=== PATIENT | female | born 1995 | race Caucasian/White ===

== ENCOUNTER → 2018-08-06 08:46 | Outpatient (CLI) | payer BC, SELFPAY | PROVIDERS: PCP Internal Medicine; Visit Provider Physician Assistant | DX: J02.9 Acute pharyngitis, unspecified (principal) | CPT/HCPCS: 87070; 87077; 87147 ==

== ENCOUNTER → 2019-01-26 15:43 | Outpatient (CLI) | payer BC, SELFPAY ==
[2019-01-26 17:30] LABS: Luteinizing Hormone 9.89 mIU/mL
== END ==
PROVIDERS: PCP Internal Medicine; Visit Provider Obstetrics & Gynecology
DX: E28.2 Polycystic ovarian syndrome (principal)
CPT/HCPCS: 36415; 83001; 83002

== ENCOUNTER → 2019-01-28 08:07 | Outpatient (CLI) | payer BC, SELFPAY ==
[2019-01-28 09:16] LABS: Glucose 85 mg/dL (70-100)
== END ==
PROVIDERS: Visit Provider Obstetrics & Gynecology
DX: E28.2 Polycystic ovarian syndrome (principal)
CPT/HCPCS: 36415; 82947; 83525

== ENCOUNTER → 2021-12-04 07:01 | Outpatient (CLI) | payer OTHER, SELFPAY ==
[2021-12-04 08:36] LABS: HCG Quantitative /Beta subunit < 2.4 mIU/mL
== END ==
PROVIDERS: Referring Provider Obstetrics & Gynecology; Visit Provider Obstetrics & Gynecology
DX: N91.2 Amenorrhea, unspecified (principal)
CPT/HCPCS: 36415; 84702

== ENCOUNTER → 2022-09-26 15:46 | Outpatient (CLI) | payer OTHER, SELFPAY ==
--- NOTE | 2022-09-26 15:47 | DI.US.S_ITS ---
PROCEDURE: US PELVIC COMPLETE INDICATIONS: pelvic pain and ovarian cysts TECHNIQUE: Real-time scanning was performed of the pelvic organs, with image documentation. Additional endovaginal scanning was necessary due to incomplete visualization of the adnexal and endometrial structures by transabdominal scanning. COMPARISON: [facility], CT, ABDOMEN/PELVIS WITH CONTRAST, 06/22/2008, 15:30. [facility], US, US PELVIC COMPLETE, 10/22/2017, 16:32. [facility], US, US PELVIC COMPLETE, 09/09/2017, 9:43. [facility], US, US PELVIC COMPLETE, 01/26/2019, 15:35. FINDINGS: Uterus: Uterus is anteverted and normal in size at 7.0 x 3.6 x 4.6 cm. The myometrium is homogeneous. The endometrium measures 4 mm combined thickness. Ovaries: The right ovary measures 2.6 x 1.9 x 2.4 cm, with a calculated ovarian volume of 6.2 cc. The left ovary measures 2.0 x 1 IX cm, with a calculated ovarian volume of 2.0 cc. The ovaries have a normal sonographic appearance. Less than 12 follicles can be seen in each ovary. Normal vascularity to ovaries on Doppler ultrasound. No adnexal masses are seen. Other: No pathologic free abdominal or pelvic fluid. IMPRESSION: 1. A cause for pelvic pain is not identified. 2. Less than 12 ovarian follicles are seen in each ovary. Ovaries are otherwise normal. 3. No free fluid in pelvis. We strive to produce accurate, complete, and clear reports of imaging services. To assist us in improving patient care, this report was composed using standard report templates and voice recognition software. Therefore, it may contain abnormal punctuation, insertions and/or omissions. Occasional wrong-word or sound-alike substitutions may occur. Though we review the report and make efforts to correct it, we do recommend that the report be read carefully in proper context to recognize any text inaccuracies. Dictated by: Madie Hull M.D. on 09/26/2022 at 18:23 Approved by: Madie Hull M.D. on 09/27/2022 at 11:06
== END ==
PROVIDERS: Referring Provider Obstetrics & Gynecology; Visit Provider Obstetrics & Gynecology
DX: E28.2 Polycystic ovarian syndrome (principal); R10.2 Pelvic and perineal pain
CPT/HCPCS: 76830; 76856

== ENCOUNTER → 2022-09-27 07:06 | Outpatient (CLI) | payer OTHER, SELFPAY ==
[2022-09-27 09:10] LABS: Glucose 82 mg/dL (70-100)
[2022-09-28 08:41] LABS: Labcorp Hemoglobin (Hb) A1c 5.6 % (4.8-5.6)
== END ==
PROVIDERS: Referring Provider Obstetrics & Gynecology; Visit Provider Obstetrics & Gynecology
DX: E28.2 Polycystic ovarian syndrome (principal)
CPT/HCPCS: 36415; 82947; 83036; 83525

== ENCOUNTER 2023-03-24 07:47 | Day surgery (SDC) | payer OTHER, SELFPAY ==
[2023-03-17 16:13] VITALS: BMI 43.5
--- NOTE | 2023-03-24 | PATH_ITS ---
[facility] Accession Number: [id number] No. of containers..01 Tissue . 01 Material submitted: . cervix - LEEP . 01 Clinical history: . TAGGED AT 12 O'CLOCK . 01 Diagnosis: Uterine Cervix, LEEP Conization: High-grade squamous intraepithelial lesion (JÚNIOR-2 and JÚNIOR-3/moderate and severe squamous dysplasia) extending into the endocervical glands. Negative for glandular dysplasia and invasive carcinoma. Surgical margins: High-grade squamous intraepithelial lesion extends to the endocervical inked and cauterized margin. Remaining margins are not involved. [facility] 03/27/2023 1619 Local . 01 Electronically signed: . Lalitha Adam MD, Pathologist NPI- [id number] . 01 Gross description: . Received in formalin, labeled with the patient's name and LEEP, is an irregular 2.2 x 1.0 x 0.6 cm fragment of pink-mullen trabecular tissue, partially covered by pink-mullen ectocervical mucosa with a suture at one location indicating 12 o'clock. Also received are two fragments of pink-mullen trabecular tissue, 0.6 x 0.5 x 0.2 cm and 0.7 x 0.6 x 0.2 cm. The largest fragment endocervical margin is inked orange and ectocervical resection is inked blue. The smaller fragments are inked black. Based on the configuration of the largest fragment, the two smaller fragments are presumably located between the 12 o'clock and 3-6 o'clock position, but true location cannot be determined. Largest fragment may represent the entire clock face. The largest fragment is radially sectioned (see diagram). The detached fragments are perpendicularly sectioned. The specimen is submitted entirely. ([id number]) /MRV 03/25/2023 1328 Local . 01 Pathologist provided ICD-10: N87.1, D06.9 . 01 CPT . 076723 Specimen Comment: A courtesy copy of this report has been sent to [phone] Performed at: 01 [facility] [address] [place] [address], [place], [place] [id number] MD Ant Newman MD Phone: [phone]
[2023-03-24] MEDS: SCOPOLAMINE 1 PATCH TOP (08:19)
[2023-03-24] MEDS: LACTATED RINGERS 1,000 ML 100 ML IV (08:19)
[2023-03-24 08:22] VITALS: BP 145/99; PULSE 105; RESP 16; TEMP 36.7; O2SAT 98; BMI 43.0
[2023-03-24 08:36] VITALS: BMI 43.0
--- NOTE | 2023-03-24 08:47 | P.HPOB_ITS ---
History of Present Illness History of Present Illness Reason for admission: other (Cervical dysplasia, grade 2-3) Narrative: Rosetta Jimenez is a 28 year old female 0 with severe dysplasia of the cervix, here for a LEEP cone biopsy of the cervix [facility] Medical History (Updated 03/05/23 @ 14:26 by Jerica Jordan MD) Polycystic ovaries Surgical History (Updated 03/24/23 @ 08:42 by Cassi Huggins RN) Hx laparoscopic cholecystectomy Status post appendectomy (06/22/08) Family History (Updated 08/27/14 @ 00:00 by Conversion Provider) Grandfather Age: 84 High cholesterol Grandmother Age: 79 Cancer of kidney Hypertension High cholesterol Stroke Mother Age: 59 High cholesterol Grandfather Diabetes mellitus Cancer Grandmother Age: 89 Cancer Diabetes mellitus Sister Age: 34 High cholesterol Social History household members: spouse Smoking Status: Never smoker alcohol intake: current Meds Home Medications and Allergies Home Medications Medication Instructions Recorded Confirmed Type metformin 500 mg tablet 500 mg PO BID #120 tabs 11/21/22 03/24/23 Rx levonorgestrel 0.15 mg-ethinyl 1 tab PO DAILY #273 ea 02/12/23 03/24/23 Rx estradiol 30 mcg tablets,3 mos pack(91) Allergies Allergy/AdvReac Type Severity Reaction Status Date / Time hydrocodone [HYDROCODONE] Allergy Severe Hives Verified 03/24/23 08:33 adhesive tape Allergy Mild Blister Verified 03/24/23 08:33 Exam Vital Signs (past 8 hours): - 03/24/23 08:22 Temperature 98.1 F Pulse Rate 105 H Respiratory Rate 16 Blood Pressure 145/99 H Pulse Oximetry 98 Oxygen Delivery Method Room Air Oxygen Delivery Method Room Air Narrative Exam Narrative: HEENT: No thyromegaly, no anterior cervical or supraclavicular lymphadenopathy. Lungs:Clear to auscultation bilaterally, no wheezes. Cardiovascular: Regular rate and rhythm, no murmurs, rubs, or gallops. Abdomen: Well-healed laparoscopy scars. No hepatosplenomegaly. No masses palpable. External genitalia: Normal Vagina: Normal Cervix: Normal Bimanual exam: 6 Week size uterus. Mobile. Extremities: No edema Assessment & Plan Assessment & Plan narrative: Assessment: 28-year-old 0 with JÚNIOR 2-3 of the cervix Plan: LEEP cone biopsy of the cervix The risks, benefits, and alternatives to the procedure were explained to the patient. The risks including bleeding, infection, and weakening of the cervix with a future . She understands these risks and agrees to proceed. A full par Q was held and consent form was signed. Time Spent With Patient Time with patient: less than 30 minutes
--- NOTE | 2023-03-24 08:51 | SUR.OPER ---
Lithotomy on padded OR bed, head on pillow, arms secured on padded arm boards at <90 degrees abduction. Legs secured in padded yellow fins stirrups.
[2023-03-24] MEDS: ACETAMINOPHEN IV 1,000 MG/100 ML VIAL 400 MG IV (09:05)
[2023-03-24 09:38] VITALS: BP 136/86; PULSE 96; RESP 20; TEMP 37.3; O2SAT 99
[2023-03-24 09:42] VITALS: BP 148/90; PULSE 80; RESP 16; O2SAT 97
--- NOTE | 2023-03-24 09:42 | P.OP_ITS ---
Operative Date/Time/Diagnoses Date of procedure: 03/24/23 Time of procedure: 09:42 Pre-op diagnosis: JÚNIOR 2-3 of the cervix Post-op diagnosis: same Procedure & Clinicians Procedure: Procedures Operation Date: 03/24/23 09:00 Actual Procedure Side Surgeon p LEEP Procedure Annette Blanco MD Indications: Patient is a 28-year-old 0 with JÚNIOR 2-3 of the cervix Surgeon: Annette Blanco Anesthesia Type: General (LMA) and Epidural Operative Notes Findings: Lugol's light at the 3 and 6 o'clock position Closure Type: not applicable Specimen(s): other (LEEP cone biopsy of the cervix, suture at 12:00 p.m.) Estimated blood loss (mL): 5 Procedure in detail: After informed consent was obtained, the patient was taken to the operating room where she was placed in the dorsal supine position. After adequate LMA general anesthesia was achieved, she was placed in the dorsal lithotomy position, and prepped and draped in the usual sterile fashion. A plastic coated bivalve speculum was placed into the vagina. A plastic coated single-tooth tenaculum was placed on the anterior lip of the cervix. The cervix was coated x3 with Lugol solution. There was a Lugol's light area at the 3 and 6 o'clock positions. Three sources of suction were used. The first was attached to the plastic coated bivalve speculum. The second was attached to the Bovie, and the third was a suction held by the surgical scrub technician. Using the large loop, and settings at 60 cut and 40 cautery, a LEEP cone biopsy of the cervix was performed. The biopsy was tagged at the 12 o'clock position with a suture. The ball cautery was used to cauterize the base of the cone. Hemostasis was achieved. The plastic coated single-tooth tenaculum was removed from the anterior lip of the cervix. A plastic coated bivalve speculum was removed from the vagina. Sponge, lap, and instrument counts were correct x2. The patient tolerated the procedure well, and was taken to PACU in stable condition. Complications: none Post-operative Condition: stable Disposition: PACU Plan for aftercare: Home after recovery
[2023-03-24 09:48] VITALS: BP 144/91; PULSE 81; RESP 16; O2SAT 97
[2023-03-24 09:57] VITALS: BP 143/87; PULSE 78; RESP 16; TEMP 37.1; O2SAT 97
== END 2023-03-24 10:13 | disposition home or self-care (01) ==
PROVIDERS: PCP Family Medicine; Referring Provider Obstetrics & Gynecology; Visit Provider Obstetrics & Gynecology
PROC: 0UBC7ZZ Excision of Cervix, Via Natural or Artificial Opening (ICD-10-PCS; CPT 57522; principal; 2023-03-24 09:00)
DX: D06.1 Carcinoma in situ of exocervix (principal)
CPT/HCPCS: 57522; 81025; J0131; J1100; J1885; J2405; J2704; J3010

== ENCOUNTER → 2023-07-17 07:00 | Outpatient (CLI) | payer OTHER, SELFPAY ==
[2023-07-17 08:03] LABS: Add Manual Diff / Slide Review NO; Basophils Absolute Auto 0 /uL (0-100); Basophils Percent Auto 0.3 % (0-2); Eosinophils Absolute Auto 200 /uL (0-450); Eosinophils Percent Auto 2.2 % (2-4); Hematocrit 39.9 % (36-46); Hemoglobin 13.5 g/dL (12.0-16.0); Lymphocytes Absolute Auto 3800 /uL (1100-4500); Lymphocytes Percent Auto 39.5 % (25-40); Mean Corpuscular HGB Conc 33.8 % (30-36); Mean Corpuscular Volume 85.7 fL (80-100); Monocytes Absolute Auto 400 /uL (0-900); Monocytes Percent Auto 4.6 % (3-14); Neutrophils Absolute Auto 5100 /uL (1500-7000); Neutrophils Percent Auto 53.4 % (50-75); Platelet Count 305 X10^3/uL (150-400); Red Blood Cell Count 4.65 X10^6/uL (4.0-5.2); Red Cell Distribution Width 12.8 % (11.6-14.8); White Blood Cell Count 9.5 X10^3/uL (4.5-11.0)
[2023-07-17 08:58] LABS: Vitamin D 25 Hydroxy (D3) 42.7 ng/mL (30.0-100.0)
[2023-07-17 09:01] LABS: Ferritin 29 ng/mL (6-137)
== END ==
PROVIDERS: PCP Family Medicine; Referring Provider Obstetrics & Gynecology; Visit Provider Obstetrics & Gynecology
DX: R53.83 Other fatigue (principal)
CPT/HCPCS: 36415; 82306; 82728; 85025

== ENCOUNTER → 2023-08-16 08:27 | Outpatient (CLI) | payer OTHER, SELFPAY ==
[2023-08-16 09:54] LABS: Alanine Aminotransferase 35 IU/L (<35); Albumin 4.4 g/dL (3.5-5.0); Albumin Globulin Ratio 1.4 (1.0-2.8); Alkaline Phosphatase 48 U/L (38-126); Aspartate Aminotransferase 29 IU/L (14-36); BUN Creatinine Ratio 17.2 (6-22); Bilirubin Total 0.5 mg/dL (0.2-1.3); Blood Urea Nitrogen 11 mg/dL (7-17); Calcium 9.7 mg/dL (8.4-10.2); Carbon Dioxide 22 mmol/L (22-32); Chloride 108 mmol/L (98-107); Cholesterol 222 mg/dL (140-199); Estimated Glomerular Filt Rate > 60 mL/min (>60); Globulin 3.2 g/dL (1.7-4.1); Glucose 85 mg/dL (70-100); HDL Cholesterol 42 mg/dL (40-60); HEMOLYSIS < 15 (0-50); LDL Cholesterol Calculated 134 mg/dL (<100); Potassium 4.6 mmol/L (3.4-5.1); Sodium 141 mmol/L (137-145); Total Protein 7.6 g/dL (6.3-8.2); Triglycerides 230 mg/dL (35-150)
[2023-08-16 10:10] LABS: Free T3, Triiodothyronine Free 4.07 pg/mL (2.77-5.27); Free T4, Direct Thyroxine 0.94 ng/dL (0.78-2.19)
[2023-08-16 10:24] LABS: Thyroid Stimulating Hormone 1.61 uIU/mL (0.47-4.68)
[2023-08-18 22:33] LABS: Thyroid Peroxidase Antibodies <9 IU/mL (0-34)
== END ==
PROVIDERS: PCP Family Medicine; Referring Provider Naturopath; Visit Provider Naturopath
DX: Z00.00 Encounter for general adult medical examination without abnormal findings (principal); E28.2 Polycystic ovarian syndrome; R53.83 Other fatigue
CPT/HCPCS: 36415; 80053; 80061; 84439; 84443; 84481; 86376

== ENCOUNTER 2024-01-12 08:02 | Day surgery (SDC) | payer OTHER, SELFPAY ==
[2024-01-06 15:17] VITALS: BMI 42.2
[2024-01-12] VITALS (7 sets, daily range): BP systolic 115–140; BP diastolic 79–93; PULSE 67–92; RESP 12–17; TEMP 36.2–36.6; O2SAT 96–99; BMI 42.2
--- NOTE | 2024-01-12 | PATH_ITS ---
[facility] Accession Number: [id number] No. of containers..01 Tissue . 01 Material submitted: . vagina - CONTENTS OF VAGINAL CYST . 01 Diagnosis: A. VAGINAL CYST CONTENTS, REMOVAL: Scant specimen consisting predominantly of proteinaceous material, mild mixed inflammatory infiltrate, and a rare collection of benign glandular cells. MRV 01/14/2024 1321 Local . 01 Electronically signed: . Dolly Garcia MD, Pathologist NPI- [id number] . 01 Gross description: . Received in formalin with two patient identifiers and contents of vaginal cyst, is an irregular yellow to mullen cloudy friable gelatinous fragment of tissue measuring 5.1 x 3.6 x 1.8 cm. Salvage Machine Operator sections are submitted in A1-A2. Note: Due to the gelatinous nature of the material, it may not survive processing. (AG:[id number]) /MRV 01/13/2024 1810 Local . 01 Pathologist provided ICD-10: N89.8 . 01 CPT . 512344 Specimen Comment: A courtesy copy of this report has been sent to [phone] Performed at: [address] [id number] MD Ant Newman MD Phone: [phone]
[2024-01-12] MEDS: LACTATED RINGERS 1,000 ML 42 ML IV (08:33)
[2024-01-12] MEDS: SCOPOLAMINE 1 PATCH TOP (08:33)
[2024-01-12] MEDS: ACETAMINOPHEN 325 MG TABLET 975 MG PO (08:33)
--- NOTE | 2024-01-12 09:03 | SUR.OPER ---
Lithotomy on padded OR bed, head on pillow, arms secured on padded arm boards at <90 degrees abduction. Legs secured in padded yellow fins stirrups.
--- NOTE | 2024-01-12 09:07 | P.HPOB_ITS ---
History of Present Illness History of Present Illness Reason for admission: other (Vaginal cyst) Narrative: Rosetta Jimenez is a 28 year old female G0 who presents for an excision a vaginal cyst and Pap smear. Patient was seen in the office and we were unable to do a Pap due to the vaginal cyst obscuring the cervix. [facility] Medical History (Updated 01/06/24 @ 15:19 by Nay Killian RN) Anesthesia complication Polycystic ovaries Surgical History (Updated 01/06/24 @ 15:18 by Nay Killian RN) Status post LEEP (loop electrosurgical excision procedure) of cervix (03/24/23) Hx laparoscopic cholecystectomy Status post appendectomy (06/22/08) Family History (Updated 08/27/14 @ 00:00 by Conversion Provider) Grandfather Age: 85 High cholesterol Grandmother Age: 80 Cancer of kidney Hypertension High cholesterol Stroke Mother Age: 60 High cholesterol Grandfather Diabetes mellitus Cancer Grandmother Age: 90 Cancer Diabetes mellitus Sister Age: 35 High cholesterol Social History household members: spouse Smoking Status: Never smoker alcohol intake: current Meds Home Medications and Allergies Home Medications Medication Instructions Recorded Confirmed Type metformin 500 mg tablet 1,000 mg (2 x 500 mg) PO BID #120 06/18/23 01/12/24 Rx tabs cholecalciferol (vitamin D3) 50 100 mcg PO DAILY 01/12/24 01/12/24 History mcg (2,000 unit) tablet (Vitamin D3) ferrous sulfate 325 mg (65 mg 325 mg PO DAILY 01/12/24 01/12/24 History iron) tablet (iron) inositol 500 mg tablet 500 mg PO DAILY 01/12/24 01/12/24 History levonorgestrel-ethinyl estradiol 1 tab PO DAILY 01/12/24 01/12/24 History 0.1 mg-20 mcg tablet (Falmina (28)) Allergies Allergy/AdvReac Type Severity Reaction Status Date / Time hydrocodone [HYDROCODONE] Allergy Severe Hives Verified 01/12/24 08:20 adhesive tape Allergy Mild Blister Verified 01/12/24 08:20 Exam Vital Signs (past 8 hours): - 01/12/24 08:40 Temperature 97.3 F L Pulse Rate 92 H Respiratory Rate 17 Blood Pressure 140/93 H Pulse Oximetry 97 Oxygen Delivery Method Room Air Oxygen Delivery Method Room Air Narrative Exam Narrative: HEENT: No thyromegaly, no anterior cervical or supraclavicular lymphadenopathy. Lungs:Clear to auscultation bilaterally, no wheezes. Cardiovascular: Regular rate and rhythm, no murmurs, rubs, or gallops. Abdomen: Well-healed scars. No hepatosplenomegaly. No masses palpable. External genitalia: Normal Vagina: Normal Cervix: Normal Bimanual exam: 6 Week size anteverted uterus. Mobile. No adnexal masses or tenderness. Extremities: No edema Assessment & Plan Assessment & Plan narrative: Assessment: 28-year-old G0 with a large left vaginal wall cyst Due for Pap smear status post LEEP Unable to visualize the cervix in the office due to the vaginal cyst Plan: Excision of the left vaginal wall cyst Pap with ECC The risks, benefits, and alternatives to the procedure were explained to the patient. The risks including bleeding and infection. She understands these risks and agrees to proceed. A full par Q was held and consent form was signed. Time-Based Coding :: [TOTAL MINUTES] spent with patient and on the chart (including review of chart, obtaining history, exam, reviewing outside data, placing orders, documenting exam and treatment plan, and counseling patient) on [DATE].
--- NOTE | 2024-01-12 09:09 | PM.PREOP ---
Pre-operative Note Interval Note History & Physical reviewed/Exam performed by Physician: Yes Changes to H&P: No H&P completed within 30 days and has changed as indicated here:: 01/12/24
--- NOTE | 2024-01-12 10:03 | PM.GYNOP.1 ---
Operative Date/Time/Diagnoses Date of procedure: 01/12/24 Time of procedure: 10:03 Pre-op diagnosis: Left vaginal wall cyst Previous LEEP, unable to see the cervix in the office due to the cyst Post-op diagnosis: same Procedure & Clinicians Procedure: Procedures Operation Date: 01/12/24 09:45 Actual Procedure Side Surgeon p Excision of Vaginal Cyst, PAP with endocervical curettage Annette Blanco MD Indications: 28-year-old 0 with a large left vaginal wall cyst. Patient had a LEEP cone biopsy of the cervix last year and is due for a Pap. I was unable to visualize the cervix in the office due to the left vaginal wall cyst. Surgeon: Annette Blanco Anesthesia Type: General (LMA) and Local Operative Notes Findings: 5 cm x 2 cm left vaginal wall cyst. This cyst was arising from the lateral vaginal wall just in front of the cervix Large amount of fatty/mucoid material in the cyst Closure Type: primary Specimen(s): other (Contents of vaginal wall cyst, Pap, ECC) Estimated blood loss (mL): 3 Blood products transfused: none Procedure in detail: After informed consent was obtained, the patient was taken to the operating room where she was placed in the dorsal supine position. After adequate LMA general anesthesia was achieved, she was placed in the dorsal lithotomy position, and prepped and draped in the usual sterile fashion. A time-out was performed. A bivalve speculum was placed into the vagina. The bulge in the mucosa was grasped with 2 Allis clamps. A 1.5 cm incision was made between the 2 Allis clamps. There was extrusion of a large amount of a yellow mucoid/fatty material. The cyst wall was removed. The mucosa was closed with 2-0 Vicryl in a running suture. Hemostasis was achieved. The cervix was irrigated with saline. A thin prep Pap of the cervix was obtained. An ECC was obtained. The speculum was removed from the vagina. Sponge, lap, and instrument counts were correct x2. The patient tolerated the procedure well, and was taken to PACU in stable condition. Complications: none Post-operative Condition: stable Disposition: PACU Plan for aftercare: Home after recovery
[2024-01-12] MEDS: BUPIVACAINE 0.5% W/ EPI (PF) 10 ML VIAL 5 ML INJ (10:04)
== END 2024-01-12 11:04 | disposition home or self-care (01) ==
PROVIDERS: PCP Family Medicine; Referring Provider Obstetrics & Gynecology; Visit Provider Obstetrics & Gynecology
PROC: (CPT 57135; principal; 2024-01-12 09:45)
DX: N89.8 Other specified noninflammatory disorders of vagina (principal); Z98.890 Other specified postprocedural states
CPT/HCPCS: 57135; 57505; 81025; J1100; J2405; J2704; J3010

== ENCOUNTER → 2024-02-12 12:13 | Outpatient (CLI) | payer OTHER, SELFPAY ==
[2024-02-13 12:36] LABS: Candida species Negative (Negative); Gardnerella vaginalis Negative (Negative); Trichomoas vaginalis Negative (Negative)
== END ==
PROVIDERS: PCP Family Medicine; Visit Provider Obstetrics & Gynecology
DX: N89.8 Other specified noninflammatory disorders of vagina (principal)
CPT/HCPCS: 87480; 87510; 87660

== ENCOUNTER → 2024-10-25 14:46 | Outpatient (CLI) | payer OTHER, SELFPAY ==
[2024-10-25 15:59] LABS: HCG Quantitative /Beta subunit 1962.8 mIU/mL
== END ==
PROVIDERS: PCP Family Medicine; Referring Provider Family Medicine; Visit Provider Obstetrics & Gynecology
DX: N91.2 Amenorrhea, unspecified (principal)
CPT/HCPCS: 36415; 84702

== ENCOUNTER → 2024-11-10 15:10 | Outpatient (CLI) | payer OTHER, SELFPAY ==
[2024-11-10 20:45] LABS: Urine N gonorrhoeae NOT DETECTED
[2024-11-10 21:40] LABS: Urine Chlamydia NOT DETECTED
== END ==
PROVIDERS: PCP Family Medicine; Visit Provider Obstetrics & Gynecology
DX: Z11.3 Encounter for screening for infections with a predominantly sexual mode of transmission (principal); Z3A.08 8 weeks gestation of pregnancy
CPT/HCPCS: 87491; 87591

== ENCOUNTER → 2024-11-30 14:41 | Outpatient (CLI) | payer OTHER, SELFPAY ==
[2024-11-30 16:19] LABS: Natera Collection Specimen Collected
[2024-11-30 16:38] LABS: Add Manual Diff / Slide Review NO; Basophils Absolute Auto 0 /uL (0-100); Basophils Percent Auto 0.1 % (0-2); Eosinophils Absolute Auto 100 /uL (0-450); Eosinophils Percent Auto 1.2 % (2-4); Hematocrit 39.5 % (36-46); Hemoglobin 13.4 g/dL (12.0-16.0); Lymphocytes Absolute Auto 2900 /uL (1100-4500); Lymphocytes Percent Auto 33.2 % (25-40); Mean Corpuscular Hemoglobin 29.7 PG (26-34); Mean Corpuscular Volume 87.2 fL (80-100); Monocytes Absolute Auto 500 /uL (0-900); Monocytes Percent Auto 5.6 % (3-14); Neutrophils Absolute Auto 5300 /uL (1500-7000); Neutrophils Percent Auto 59.9 % (50-75); Platelet Count 316 X10^3/uL (150-400); Red Blood Cell Count 4.53 X10^6/uL (4.0-5.2); Red Cell Distribution Width 12.4 % (11.6-14.8); White Blood Cell Count 8.8 X10^3/uL (4.5-11.0)
[2024-11-30 18:25] LABS: Hepatitis B Surface Antigen NEGATIVE s/c (NEGATIVE); Rubella Antibody IgG 61.7 IU/mL (>15)
[2024-11-30 18:39] LABS: HIV 1 & 2 Ab/Ag 4th Gen Combo NEGATIVE (NEGATIVE); Hep C Virus Ab w/Reflex Quant NEGATIVE s/c (NEGATIVE)
== END ==
LOC: LAB 14:43
PROVIDERS: PCP Family Medicine; Referring Provider Obstetrics & Gynecology; Visit Provider Obstetrics & Gynecology
DX: O99.210 Obesity complicating pregnancy, unspecified trimester (principal); E28.2 Polycystic ovarian syndrome; Z36.0 Encounter for antenatal screening for chromosomal anomalies
CPT/HCPCS: 36415; 80055; 83036; 86787; 86803; 86850; 86900; 86901; 87086; 87389

== ENCOUNTER 2025-01-04 08:13 | Day surgery (SDC) | payer OTHER, SELFPAY ==
[2024-12-30 08:40] VITALS: BMI 44.6
[2025-01-04 08:41] VITALS: BP 144/94; PULSE 93; RESP 16; TEMP 36.3; O2SAT 97; BMI 44.8
--- NOTE | 2025-01-04 08:41 | PM.GYNHP.1 ---
History of Present Illness History of Present Illness Narrative: Rosetta Jimenez is a 29 year old female 1 para 0 at 15 weeks gestation who presents for a Hernández cervical cerclage. Patient is status post a large/extensive LEEP cone biopsy of the cervix. [facility] Medical History (Updated 12/21/24 @ 10:39 by Annette Blanco MD) High cholesterol High blood pressure Mullerian duct cyst of vagina Anesthesia complication Surgical History Status post LEEP (loop electrosurgical excision procedure) of cervix (03/24/23) Hx laparoscopic cholecystectomy Status post appendectomy (06/22/08) Family History (Updated 10/28/24 @ 08:07 by Carey Martinez RN) Grandfather High cholesterol Heart disease S/P CABG x 3 Grandmother Age: 81 Cancer of kidney Hypertension High cholesterol Stroke Diabetes mellitus Mother Age: 61 High cholesterol Grandfather Diabetes mellitus Colon cancer Grandmother Age: 91 Diabetes mellitus Myeloma Sister Age: 36 High cholesterol Social History marital status: number of children: 0 household members: spouse lives independently: Yes caregiver/support person: No housing: house pets and animals: No education level: vocational occupational status: employed (insurance sales) current occupational exposures/hazards: No special manuel needs: No travel history: recent (domestic only) seatbelt use: always water heater temp set < 120 deg: Yes working smoke detector in home: Yes fire extinguisher in home: Yes carbon monox detector in home: Yes firearms in home: No do you feel safe at home: Yes second hand exposure: No alcohol intake: former substance use type: does not use during the past year weight has: remained stable well-balanced diet: rarely or never daily servings fruits/ve-1 (1-2) caffeine: Yes (aware of 200mg ) Type(s) of exercise: walking Meds Home Medications and Allergies Home Medications ?Medication ?Instructions ?Recorded ?Confirmed ?Type metformin 500 mg tablet,extended 500 mg PO BID #60 tabs 05/26/24 12/21/24 Rx release 24 hr vitamin-ferrous sulfate tab PO 10/28/24 12/21/24 History 27 mg iron-folic acid 0.8 mg tablet Allergies Allergy/AdvReac Type Severity Reaction Status Date / Time hydrocodone (HYDROCODONE) Allergy Severe Hives Verified 01/04/25 08:52 adhesive tape Allergy Mild Blister Verified 01/04/25 08:52 Exam Narrative Exam Narrative: HEENT: No thyromegaly, no anterior cervical or supraclavicular lymphadenopathy. Lungs:Clear to auscultation bilaterally, no wheezes. Cardiovascular: Regular rate and rhythm, no murmurs, rubs, or gallops. Abdomen: [Well-healed scars. No hepatosplenomegaly. No masses palpable Bimanual exam: 15 Week size uterus. Mobile. Extremities: No edema Assessment & Plan Assessment & Plan narrative: Assessment: 29-year-old 1 para 0 at 15 weeks gestation Status post large/extensively cone biopsy of the cervix Plan: Hernández cervical cerclage The risks, benefits, and alternatives to the procedure were explained to the patient. The risks including bleeding, infection, and rupture of membranes. She understands all of these risks and agrees to proceed. A full par Q was held and consent form was signed. Time-Based Coding :: [TOTAL MINUTES] spent with patient and on the chart (including review of chart, obtaining history, exam, reviewing outside data, placing orders, documenting exam and treatment plan, and counseling patient) on [DATE].
--- NOTE | 2025-01-04 08:43 | PM.PREOP ---
Pre-operative Note Interval Note History & Physical reviewed/Exam performed by Physician: Yes Changes to H&P: No H&P completed within 30 days and has changed as indicated here:: 01/04/25
[2025-01-04] MEDS: LACTATED RINGERS 1,000 ML 21 ML IV (09:00)
[2025-01-04] MEDS: ACETAMINOPHEN IV 1,000 MG/100 ML VIAL 400 MG IV (09:07)
[2025-01-04] MEDS: CEFAZOLIN 2 GM/100 ML PREMIX 100 ML IV (10:10)
--- NOTE | 2025-01-04 10:15 | SUR.OPER ---
Lithotomy on padded OR bed, head on pillow, arms secured on padded arm boards at <90 degrees abduction. Legs secured in padded yellow fins stirrups.
[2025-01-04] MEDS: INDOMETHACIN 25 MG CAPSULE 50 MG PO (10:36)
[2025-01-04 10:47] VITALS: BP 145/75; PULSE 97; RESP 12; TEMP 36.3; O2SAT 96
[2025-01-04 10:52] VITALS: BP 134/72; PULSE 95; RESP 18; O2SAT 95
--- NOTE | 2025-01-04 10:55 | PM.GYNOP.1 ---
Operative Date/Time/Diagnoses Date of procedure: 01/04/25 Time of procedure: 10:55 Pre-op diagnosis: Status post large/extensive LEEP cone biopsy of the cervix Post-op diagnosis: same Procedure & Clinicians Procedure: Procedures Operation Date: 01/04/25 09:45 Actual Procedure Side Surgeon salome Blanco MD Indications: 29-year-old 1 para 0 at 15 weeks gestation with a history of a large/extensive LEEP cone biopsy of the cervix Surgeon: Annette Blanco Operative Notes Findings: Cervix 4 cm in length Knot at 11 o'clock Closure Type: not applicable Specimen(s): none Applied: catheter (In/out to drain the bladder) Estimated blood loss (mL): 10 Blood products transfused: none Procedure in detail: After informed consent was obtained, the patient was taken to the operating room where she was placed in the dorsal supine position. After adequate general endotracheal anesthesia was achieved, she was placed in the dorsal lithotomy position, and prepped and draped in the usual sterile fashion. A time-out was performed. A weighted speculum was placed into the vagina and the anterior and posterior lips of the cervix were grasped with ring forceps. Using a 5 mm Mersilene on a taper needle a pursestring suture was performed starting at 11-9, 8 - 7, 5 - 3, and 2-11 o'clock. 5 knots were tied at 11 o'clock. A digital exam was performed and 1 finger could not be admitted. 50 mg of indomethacin were placed rectally. Sponge, lap, and instrument counts were correct x2. The patient tolerated the procedure well, and was taken to PACU in stable condition. heart tones to be obtained in recovery. Post-operative Condition: stable Disposition: PACU Plan for aftercare: Home after recovery
[2025-01-04 10:57] VITALS: BP 118/71; PULSE 94; RESP 19; O2SAT 94
[2025-01-04] MEDS: BENZOCAINE/MENTHOL 1 LOZ PKT 1 EACH PO (10:57)
[2025-01-04 11:02] VITALS: BP 119/65; PULSE 93; RESP 20; O2SAT 95
[2025-01-04 11:29] VITALS: BP 124/73; PULSE 89; RESP 17; TEMP 36.5; O2SAT 96
--- NOTE | 2025-01-04 11:38 | PC.NURSE ---
1130- This OB RN assessed FHTs, auscultated x90 seconds, HR 145, normal rhythm
--- NOTE | 2025-01-04 11:54 | SUR.PHASEII ---
center RN came and did heart tones. RN stated she would chart heart tones.
== END 2025-01-04 11:55 | disposition home or self-care (01) ==
PROVIDERS: PCP Family Medicine; Referring Provider Obstetrics & Gynecology; Visit Provider Obstetrics & Gynecology
PROC: 0UVC7ZZ Restriction of Cervix, Via Natural or Artificial Opening (ICD-10-PCS; CPT 57700; principal; 2025-01-04 09:45)
DX: O34.42 Maternal care for other abnormalities of cervix, second trimester (principal); Z3A.15 15 weeks gestation of pregnancy
CPT/HCPCS: 59320; J0131; J0330; J0690; J1100; J1885; J2405; J2704; J2765; J3010

== ENCOUNTER → 2025-01-19 10:36 | Outpatient (CLI) | payer OTHER, SELFPAY | PROVIDERS: PCP Family Medicine; Referring Provider Obstetrics & Gynecology; Visit Provider Obstetrics & Gynecology | DX: Z36.0 Encounter for antenatal screening for chromosomal anomalies (principal) | CPT/HCPCS: 36415; 82105 ==

== ENCOUNTER → 2025-03-04 15:04 | Outpatient (CLI) | payer OTHER, SELFPAY ==
--- NOTE | 2025-03-04 15:05 | DI.US.S_ITS ---
PROCEDURE: US OB FOLLOW UP INDICATIONS: f/u cardiac and facial views OUTSIDE/PRIOR DATING DATA: Last menstrual period (LMP): 09/12/2024 LMP-based estimated date of delivery (CHELA): 06/19/2025 First dating scan (date and location): [id number]. Estimated date of delivery (CHELA) from first dating scan: 06/27/2025 The calculations are made using the working CHELA of 06/27/2025. TECHNIQUE: Real-time scanning was performed of the fetus, with image documentation. Endovaginal scanning: Not performed COMPARISON: 02/08/2025. FINDINGS: A single living intrauterine gestation is present. Presentation: Vertex Placenta: Placental position is anterior without previa. Amniotic fluid index: 17.3 cm, normal range is 5-24 cm. Single deepest vertical pocket is 5.1 cm. heart rate: 144 beats per minute. Maternal cervical canal: Closed and measures 3.3 cm long. Normal lower limit is 2.5 cm. Estimated gestational age from initial scan: 23 weeks, 4 days. facial profile, four-chamber heart and ventricular outflow tracts are visualized and are within normal limits. IMPRESSION: 1. Single live intrauterine gestation with fetus in vertex presentation. heart rate is 144 beats per minute. Normal LUCY at 17.3 cm. 2. facial profile, four-chamber heart and ventricular outflow tracts are visualized and are within normal limits. Dictated by: Juan Estrella M.D. on 03/05/2025 at 1:34 Approved by: Juan Estrella M.D. on 03/05/2025 at 1:36
== END ==
PROVIDERS: PCP Family Medicine; Referring Provider Obstetrics & Gynecology; Visit Provider Obstetrics & Gynecology
DX: O09.92 Supervision of high risk pregnancy, unspecified, second trimester (principal); O99.212 Obesity complicating pregnancy, second trimester; Z3A.23 23 weeks gestation of pregnancy
CPT/HCPCS: 76816

== ENCOUNTER → 2025-03-25 07:10 | Outpatient (CLI) | payer OTHER, SELFPAY ==
[2025-03-25 08:59] LABS: Hematocrit 34.3 % (36-46); Hemoglobin 11.7 g/dL (12.0-16.0)
[2025-03-25 09:24] LABS: GTT (PREG) 1 Hour PP 50gm Dose 143 mg/dL (76-139)
== END ==
PROVIDERS: PCP Family Medicine; Referring Provider Obstetrics & Gynecology; Visit Provider Obstetrics & Gynecology
DX: Z13.0 Encounter for screening for diseases of the blood and blood-forming organs and certain disorders involving the immune mechanism (principal); Z13.1 Encounter for screening for diabetes mellitus
CPT/HCPCS: 36415; 82950; 85014; 85018

== ENCOUNTER 2025-03-27 11:18 | Outpatient (CLI) | payer OTHER, SELFPAY | END 2025-03-27 12:02 | disposition home or self-care (01) | LOC: LABOR 12:01 → OB 03-28 06:48 | PROVIDERS: PCP Family Medicine; Referring Provider Internal Medicine; Visit Provider Student in an Organized Health Care Education/Training Program | DX: O36.8120 Decreased fetal movements, second trimester, not applicable or unspecified (principal); O26.892 Other specified pregnancy related conditions, second trimester; M25.512 Pain in left shoulder; Z3A.26 26 weeks gestation of pregnancy | CPT/HCPCS: 59025; 93010; G0378; G0379 ==

== ENCOUNTER 2025-03-27 11:54 | Emergency (ER) | payer OTHER, SELFPAY ==
[2025-03-27] VITALS (10 sets, daily range): BP systolic 118–134; BP diastolic 62–85; PULSE 99–120; RESP 17–27; TEMP 36.5; O2SAT 95–98; BMI 45.7
--- NOTE | 2025-03-27 12:34 | DI.RAD.S_ITS ---
PROCEDURE: XR CHEST 1V INDICATIONS: Chest Pain TECHNIQUE: One view of the chest was acquired. COMPARISON: None. FINDINGS: Surgical changes and devices: None. Lungs and pleura: Lungs are clear. No pleural effusions or pneumothorax. Mediastinum: Mediastinal contours appear normal. Heart size is normal. Bones and chest wall: No suspicious bony lesions. Overlying soft tissues appear unremarkable. IMPRESSION: No acute cardiopulmonary abnormality is seen. Approved by: Chele Cortes M.D. on 03/27/2025 at 12:38
[2025-03-27 12:58] LABS: Add Manual Diff / Slide Review NO; Hematocrit 36.1 % (36-46); Hemoglobin 12.4 g/dL (12.0-16.0); Lymphocytes Absolute Auto 2000 /uL (1100-4500); Mean Corpuscular HGB Conc 34.3 % (30-36); Mean Corpuscular Hemoglobin 29.3 PG (26-34); Mean Corpuscular Volume 85.5 fL (80-100); Platelet Count 279 X10^3/uL (150-400)
--- NOTE | 2025-03-27 12:59 | EKG_ITS ---
[address] [address] Test Date: 2025-03-27 Pat Name: Rosetta Jimenez Department: [facility] Room: Gender: Female Audio Video Repairer: FRANCISCO : 1995 Requested By: Order Number: [id number] Reading MD: Jer Newby MD Measurements Intervals [place] Rate: 89 P: 15 NC: 138 QRS: 19 QRSD: 84 T: -1 QT: 366 QTc: 445 Interpretive Statements Normal sinus rhythm Electronically Signed On 03-27-2025 21:52:20 PDT by Jer Newby MD
[2025-03-27 13:02] LABS: INR 1.2 (0.9-1.3); Prothrombin Time 13.5 SECONDS (9.4-12.5)
[2025-03-27 13:04] LABS: PTT Partial Thromboplastin Tim 31 SECONDS (25.1-36.5)
[2025-03-27 13:06] LABS: Alanine Aminotransferase 11 IU/L (<35); Albumin 4.1 g/dL (3.5-5.0); Albumin Globulin Ratio 1.3 (1.0-2.8); Alkaline Phosphatase 72 U/L (38-126); Blood Urea Nitrogen 4 mg/dL (7-17); Calcium 9.3 mg/dL (8.4-10.2); Carbon Dioxide 18 mmol/L (22-32); Chloride 106 mmol/L (98-107); Creatine Kinase 43 U/L (30-135); Estimated Glomerular Filt Rate > 60 mL/min (>60); Globulin 3.2 g/dL (1.7-4.1); Glucose 81 mg/dL (70-99); HEMOLYSIS < 15 (0-50); Lipase 46 U/L (23-300); Magnesium 1.5 mg/dL (1.6-2.3); Potassium 4.0 mmol/L (3.4-5.1); Sodium 136 mmol/L (137-145); Total Protein 7.3 g/dL (6.3-8.2)
[2025-03-27 13:18] LABS: NT-proBNP (BNP-Adult 18+) < 20 pg/mL (<125); Troponin I < 0.012 ng/mL (0.01-0.034)
--- NOTE | 2025-03-27 15:21 | PC.NURSE ---
pt states pain in the L rib area that radiates into her R shoulder.
--- NOTE | 2025-03-27 15:52 | ED_ITS ---
HPI - Extremity Problem General Chief complaint: Extremity Problem,Nontraumatic Stated complaint: lt side rib pain moved up to shoulder t-3 [id number] Time Seen by Provider: 03/27/25 14:29 Source: patient, RN notes reviewed and old records reviewed Mode of arrival: Ambulatory Limitations: no limitations History of Present Illness HPI Narrative: 30-year-old female proximally [address] Payne. Patient notes started having chest discomfort which she describes as pain in the left lower chest starting 2 days ago has since moved up towards her left shoulder. She states at 1 point of move to her back but has mostly been anterior. She denies fevers or chills. She states nothing seems to make it better or worse she has not noticed any change with the exertion, no changes with movement, she has tried ice, heat and acetaminophen without improvement. New rash or skin changes. She notes some shortness of breath and describes some pleuritic chest discomfort. She denies any nausea or vomiting. No syncope. No new swelling or edema in her extremities. No warmth, erythema or cramping. No issues with bowel movements. Patient has not had any prior pregnancies, she is following with Dr. Payne. She is not any daily medications. She has had prior appendectomy, cholecystectomy, LEEP and cerclage. No tobacco, no alcohol, no recreational drugs. She denies any prior cardiac, pulmonary or vascular history and denies any for her family as well. Related Data Home Medications ?Medication ?Instructions ?Recorded ?Confirmed vitamin-ferrous sulfate See Rx Instructions P O .COMPLEX 10/28/24 03/16/25 27 mg iron-folic acid 0.8 mg tablet Previous Rx's ?Medication ?Instructions ?Recorded metformin 500 mg tablet,extended 500 mg PO BID #60 tab s 05/26/24 release 24 hr indomethacin 25 mg capsule 25 mg PO QID #4 caps sertraline 50 mg tablet (Zoloft) 50 mg PO DAILY #30 ta bs 02/16/25 Allergies Allergy/AdvReac Type Severity Reaction Status Date / Time hydrocodone (HYDROCODONE) AdvReac Severe Hives Verified 03/27/25 12:19 adhesive tape AdvReac Mild Blister Verified 03/27/25 12:19 Review of Systems Review of Systems ROS Unobtainable: All systems reviewed & are unremarkable except as noted in HPI and below Patient History Medical History High cholesterol High blood pressure Mullerian duct cyst of vagina Anesthesia complication Surgical History Status post LEEP (loop electrosurgical excision procedure) of cervix (03/24/23) Hx laparoscopic cholecystectomy Status post appendectomy (06/22/08) Family History Grandfather High cholesterol Heart disease S/P CABG x 3 Grandmother Age: 81 Cancer of kidney Hypertension High cholesterol Stroke Diabetes mellitus Mother Age: 61 High cholesterol Grandfather Diabetes mellitus Colon cancer Grandmother Age: 91 Diabetes mellitus Myeloma Sister Age: 36 High cholesterol Social History marital status: number of children: 0 household members: spouse lives independently: Yes caregiver/support person: No housing: house pets and animals: No education level: vocational occupational status: employed (insurance sales) current occupational exposures/hazards: No special manuel needs: No travel history: recent (domestic only) seatbelt use: always water heater temp set < 120 deg: Yes working smoke detector in home: Yes fire extinguisher in home: Yes carbon monox detector in home: Yes firearms in home: No do you feel safe at home: Yes Smoking Status: Never smoker second hand exposure: No alcohol intake: former substance use type: does not use during the past year weight has: remained stable well-balanced diet: rarely or never daily servings fruits/ve-1 (1-2) caffeine: Yes (aware of 200mg ) Type(s) of exercise: walking Smoking Status: Never smoker alcohol intake frequency: a few times a month Exam Narrative Exam Narrative: GENERAL: Alert and oriented x three, well-appearing female in mild distress HEENT: Head normocephalic, atraumatic, EOMI, pupils reactive, face symmetric, moist mucous membranes NECK: Supple, full range of motion CARDIOVASCULAR: Regular rate and rhythm without murmurs, rubs or gallops. No reproducible chest pain. RESPIRATORY: Breath sounds equal bilaterally, no wheezes rales or rhonchi. No tachypnea or accessory muscle use. Speaks in full sentences. ABDOMEN: Soft, nontender. Normoactive bowel sounds all 4 quadrants. No guarding or rebound, rigidity, no mass : No CVA tenderness EXTREMITIES: Normal range of motion, no clubbing, no edema bilateral upper or lower extremities. Neurovascularly intact NEUROLOGICAL: Cranial nerves II through XII grossly intact. Moving all extremities SKIN: Warm, dry, no petechiae, no rashes or lesions. Initial Vital Signs Initial Vital Signs: Vital Signs Temperature 97.7 F 03/27/25 12:20 Pulse Rate 102 H 03/27/25 12:20 Respiratory Rate 17 03/27/25 12:20 Blood Pressure 134/85 03/27/25 12:20 Pulse Oximetry 98 03/27/25 12:20 Oxygen Delivery Method Room Air 03/27/25 12:20 Scores HEART Score Heart Score history: Slightly Suspicious Heart Score EKG: Normal Heart Score Age: < 45 years old Heart Score risk factors: No known risk factors Heart Score troponin: < or = to normal limit Heart Score Total: 0 PERC Score Age greater than or equal to 50 years: No Heart rate greater than or equal to 100 bpm: Yes Room Air O2 Sat less than 95%: No Unilateral leg swelling: No Recent trauma or surgery: No Hemoptysis: No Prior PE or DVT: No Hormone Use: No (+) Total PERC Score: 1 Course Orders Ordered: ED Orders 03/27/25 12:34 XR chest 1V Stat EKG-12 Lead Stat 03/27/25 12:46 Complete Blood Count AUTO DIFF Stat Comprehensive Metabolic Panel Stat D Dimer Stat Lipase Stat Magnesium Stat NT-proBNP (BNP-Adult 18+) Stat PTT Partial Thromboplastin Cade Stat Prothrombin Time INR Stat Troponin & CK Cardiac Panel Stat 03/27/25 16:14 CT angio chest PE protocol Stat Discontinued Medications Sodium Chloride (Normal Saline 0.9%) 1,000 mls @ 1,000 mls/hr IV BOLUS ONE Stop: 03/27/25 17:14 Last Infusion: 03/27/25 18:06 Dose: Infused Documented By: Admin: 03/27/25 16:37 Dose: 1,000 mls/hr Documented By: TOMY Vital Signs Vital signs: Vital Signs - 8 hr 03/27/25 12:20 03/27/25 15:10 03/27/25 15:11 Temperature 97.7 F Pulse Rate 102 H Respiratory Rate 17 Blood Pressure 134/85 130/80 Pulse Oximetry 98 97 Oxygen Delivery Method Room Air 03/27/25 15:11 03/27/25 15:30 03/27/25 15:30 Temperature Pulse Rate 120 H 120 H Respiratory Rate 20 Blood Pressure 130/71 Pulse Oximetry 98 96 Oxygen Delivery Method 03/27/25 16:00 03/27/25 16:00 03/27/25 16:37 Temperature Pulse Rate 118 H 105 H Respiratory Rate 24 23 Blood Pressure 118/65 Pulse Oximetry 96 97 Oxygen Delivery Method 03/27/25 16:38 03/27/25 16:38 03/27/25 17:00 Temperature Pulse Rate 105 H Respiratory Rate 27 H Blood Pressure 124/81 118/62 Pulse Oximetry 97 Oxygen Delivery Method 03/27/25 17:00 03/27/25 17:30 03/27/25 17:30 Temperature Pulse Rate 100 H 102 H Respiratory Rate 21 25 H Blood Pressure 123/63 Pulse Oximetry 97 95 Oxygen Delivery Method 03/27/25 18:00 03/27/25 18:00 Temperature Pulse Rate 99 H Respiratory Rate 23 Blood Pressure 125/62 Pulse Oximetry 97 Oxygen Delivery Method MDM - Extremity (Nontraumatic) Lab Data 03/27/25 12:46 03/27/25 12:46 Labs: Lab Results 03/27/25 Range/Units 12:46 WBC 9.4 (4.5-11.0) X10^3/uL RBC 4.22 (4.0-5.2) X10^6/uL Hgb 12.4 (12.0-16.0) g/dL Hct 36.1 (36-46) % MCV 85.5 (80-100) fL MCH 29.3 (26-34) PG MCHC 34.3 (30-36) % RDW 13.0 (11.6-14.8) % Plt Count 279 (150-400) X10^3/uL Neut % (Auto) 73.2 (50-75) % Lymph % (Auto) 21.5 L (25-40) % [place] % (Auto) 4.6 (3-14) % Eos % (Auto) 0.4 L (2-4) % Baso % (Auto) 0.3 (0-2) % Neut # (Auto) 6900 (3217-7444) /uL Lymph # (Auto) 2000 (4708-6436) /uL [place] # (Auto) 400 (0-900) /uL Eos # (Auto) 0 (0-450) /uL Baso # (Auto) 0 (0-100) /uL PT 13.5 H (9.4-12.5) SECONDS INR 1.2 (0.9-1.3) APTT 31 (25.1-36.5) SECONDS D-Dimer 1086 H (<500) ng/ml Sodium 136 L (137-145) mmol/L Potassium 4.0 (3.4-5.1) mmol/L Chloride 106 (98-107) mmol/L Carbon Dioxide 18 L (22-32) mmol/L BUN 4 L (7-17) mg/dL Creatinine 0.48 L (0.52-1.04) mg/dL Estimated GFR > 60 (>60) mL/min BUN/Creatinine Ratio 8.3 (6-22) Glucose 81 (70-99) mg/dL Calcium 9.3 (8.4-10.2) mg/dL Magnesium 1.5 L (1.6-2.3) mg/dL Total Bilirubin 0.4 (0.2-1.3) mg/dL AST 19 (14-36) IU/L ALT 11 (<35) IU/L Alkaline Phosphatase 72 (38-126) U/L Total Creatine Kinase 43 (30-135) U/L Troponin I < 0.012 (0.01-0.034) ng/mL NT-Pro-B Natriuret Pep < 20 (<125) pg/mL Total Protein 7.3 (6.3-8.2) g/dL Albumin 4.1 (3.5-5.0) g/dL Globulin 3.2 (1.7-4.1) g/dL Albumin/Globulin Ratio 1.3 (1.0-2.8) Lipase 46 (23-300) U/L ECG Data Attestation EKG: I personally reviewed and interpreted this ECG as follows: Prior ECG tracings: not available for review Interpretation: Sinus rhythm rate 89, PA 138 QRS 84 QTC of 445.? No acute ST-elevation? MDM Narrative Medical decision making narrative: Labs show normal CBC, sodium is 136 CO2 is 18 BUN 4 creatinine 0.48, electrolytes are otherwise appropriate glucose is 81, Mag is 1.5, troponin BNP are normal. D-dimer is 1086. Chest x-ray shows no acute cardiopulmonary process. Sinus rhythm rate 89, PA 138 QRS 84 QTC of 445. No acute ST-elevation CT angio PE protocol, no PE, no acute cardiopulmonary process incidental large splenic cyst partially imaged increase in size from 07/19/2024/splenic cyst is 9x8 cm was prior 4.9 x 3.9 cm/ 30-year-old female at 27 weeks with a complaint of chest left-sided radiating towards her shoulder. Heart score is 0, PERC 1. YEARS algorithm no clinical signs of DVT, hemoptysis or PE but patient has a positive dimer PE scan is recommended. Discussed findings with the patient initially was sinus rhythm but she is tachycardic in the room without any exertion at with a heart rate of 115 no hypotension or hypoxia notes little bit of lower left-sided chest pain which has since moved up towards her upper chest. Besides does not have any other known risk factors and after discussion of risks versus benefit felt appropriate to obtain CT PE to rule out blood clot. Discussed with the patient she is agreeable. Workup shows large splenic cyst which has increased in size from prior in July 2024. Discussed with the patient this could potentially be source of her left-sided lower chest discomfort. Did recommend that she would follow up for repeat imaging and follow up for this splenic cyst as it is changing in size. We also discussed that is sometimes if cyst get large enough they can bleed or rupture med if she has new or worsening symptoms to return to the ER. Discharge Plan Departure Patient Disposition: Home Clinical Impression: Cyst of spleen Activity Restrictions/Additional Instructions: Your workup today does show a splenic cyst, in his 9 x 8 cm on prior imaging from July 2024 it was 4.9 x 3.9 cm you need to follow up to have repeat ultrasound to make sure it isn't continuing to grow or change in size. You can take acetaminophen up to a 1000 mg every 6 hours as needed for pain. Please return if you develop fevers, new or worsening abdominal back or flank pain, new chest pain, new shortness of breath, rapidly worsening left-sided pain, persistent vomiting or other new or concerning changes. Prescriptions: No Action metformin 500 mg tablet extended release 24 hr 500 mg PO BID Qty: 60 11RF Patient Comments: 2 days ago sertraline [Zoloft] 50 mg tablet 50 mg PO DAILY Qty: 30 4RF vit-ferrous sulfat-FA 27 mg iron- 0.8 mg tablet See Rx Instructions PO .COMPLEX Patient Comments: pt taking 1 tab a day Rx Instructions: 1 tab orally; indomethacin 25 mg capsule 25 mg PO QID Qty: 4 0RF Rx Instructions: administer with food or milk Referrals: Camille Payne DO [Physician, Gynecology] Cece Cuba MD [Primary Care Provider, Family Practice] Stand Alone Forms: Patient Portal/API
--- NOTE | 2025-03-27 16:14 | DI.CT.S_ITS ---
PROCEDURE: CT ANGIO CHEST PE PROTOCOL INDICATIONS: Lsided CP, tachycardia, elevated dimer + YEARs + TECHNIQUE: After the administration of intravenous contrast, 2 mm thick sections acquired from the pulmonary apices to the posterior costophrenic angles. MIP reformats of the arterial vasculature were utilized. For radiation dose reduction, the following was used: automated exposure control, adjustment of mA and/or kV according to patient size. COMPARISON: [facility], CT, CT ABDOMEN PELVIS WITH CONTRAST, 07/19/2024, 16:01. FINDINGS: Pulmonary arteries: Pulmonary arteries are normal in size, and demonstrate no intraluminal filling defects to suggest central pulmonary embolism. Lower Neck: No enlarged lymph nodes. Thyroid: No thyroid nodules which require sonographic follow up, per consensus guidelines. Axillae: No enlarged lymph nodes. Chest Wall: Unremarkable. Bones: Unremarkable. Lungs and Pleura: No pneumothorax or pleural effusions. No consolidation or suspicious nodules. Heart: Heart size is normal. No pericardial effusion. Thoracic Vessels: No aortic aneurysm. Mediastinum and Abbi: No enlarged lymph nodes. Esophagus: No wall thickening. No hiatal hernia. Upper Abdomen: Large splenic cyst measures 9 x 8 cm, previously 4.9 x 3.9 cm IMPRESSION: No pulmonary embolus. No acute cardiopulmonary process. Incidental large splenic cyst, partially imaged, increased in size from 07/19/2024 Approved by: Chele Cortes M.D. on 03/27/2025 at 16:26
--- NOTE | 2025-03-27 16:23 | PC.NURSE ---
pt to CT
[2025-03-27] MEDS: SODIUM CHLORIDE 0.9% 1,000 ML 1000 ML IV (16:37)
== END 2025-03-27 18:07 | disposition home or self-care (01) ==
PROVIDERS: Emergency Provider Emergency Medicine; PCP Family Medicine
DX: O26.92 Pregnancy related conditions, unspecified, second trimester (principal); D73.4 Cyst of spleen; R07.9 Chest pain, unspecified; Z3A.27 27 weeks gestation of pregnancy
CPT/HCPCS: 36415; 59025; 71045; 71275; 80053; 82550; 83690; 83735; 83880; 84484; 85025; 85379; 85610; 85730; 93005; 96360; 99284; J7030; Q9967

== ENCOUNTER 2025-04-04 17:04 | Outpatient (CLI) | payer OTHER, SELFPAY | END 2025-04-04 17:43 | disposition home or self-care (01) | LOC: AC 17:08 → OB 04-05 07:05 | PROVIDERS: PCP Family Medicine; Referring Provider Obstetrics & Gynecology; Visit Provider Obstetrics & Gynecology | DX: O36.8120 Decreased fetal movements, second trimester, not applicable or unspecified (principal); Z3A.27 27 weeks gestation of pregnancy | CPT/HCPCS: 59025; G0378; G0379 ==

== ENCOUNTER → 2025-05-27 12:34 | Outpatient (CLI) | payer OTHER, SELFPAY ==
[2025-05-28 12:52] LABS: Strep Grp B PCR NEG for Grp B Strep
== END ==
PROVIDERS: PCP Family Medicine; Visit Provider Obstetrics & Gynecology
DX: Z36.85 Encounter for antenatal screening for Streptococcus B (principal)
CPT/HCPCS: 87653